=== PATIENT | female | born 1945 | race Caucasian/White ===

== ENCOUNTER 2017-10-09 14:34 | Outpatient (CLI) | payer MEDICARE, OTHER | END 2017-10-09 14:35 | disposition home or self-care (01) | LOC: CTENTCT 14:34 | PROVIDERS: ATTEND Otolaryngology Plastic Surgery within the Head & Neck | DX: J32.9 Chronic sinusitis, unspecified (principal) | CPT/HCPCS: 70486 ==

== ENCOUNTER 2018-09-26 11:46 | Outpatient (CLI) | payer MEDICARE | END 2018-09-26 11:47 | disposition home or self-care (01) | LOC: BICMAMMO 11:46 | PROVIDERS: ATTEND Internal Medicine | DX: Z12.31 Encounter for screening mammogram for malignant neoplasm of breast (principal); R92.1 Mammographic calcification found on diagnostic imaging of breast; Z85.72 Personal history of non-Hodgkin lymphomas | CPT/HCPCS: 77063; 77067 ==

== ENCOUNTER 2018-10-09 14:16 | Outpatient (CLI) | payer MEDICARE | END 2018-10-09 14:17 | disposition home or self-care (01) | LOC: BICMAMMO 14:16 | PROVIDERS: ATTEND Internal Medicine | DX: N64.89 Other specified disorders of breast (principal); Z85.72 Personal history of non-Hodgkin lymphomas | CPT/HCPCS: 77065; G0279 ==